=== PATIENT | female | born 2000 | race Caucasian/White ===

== ENCOUNTER 2022-08-06 14:31 | Emergency (ER) | payer OTHER ==
[~2022-08-06] VITALS: Ht 152.4 cm; Wt 74.9 kg
[2022-08-06 14:45] VITALS: BP 151/94
--- NOTE | 2022-08-06 14:45 | NUR ---
pt to bed 7 ambulatory
--- NOTE | 2022-08-06 15:00 | NUR ---
21YO FEMALE PT C/O BREAST RASH AND DISCHARGE [id number]. REPORTS SUDDEN ONSET. SOILED BRA NOTED. BREAST HOT TO TOUCH. DENIES CHANGE IN DAILY ROUTINE, N/V/D, FEVER OR CHILLS. PT AAOX4, NO VISIBLE DISTRESS. HX: ECZEMA NKA
--- NOTE | 2022-08-06 15:33 | NUR ---
Female Textile Bag Sewer accompanied female patient for BREAST Exam.
--- NOTE | 2022-08-06 15:33 | NUR ---
ADRIENNE HARRIS AT BEDSIDE FOR EVALUATION
[2022-08-06] MEDS ORDERED: BUTE30CR4 TP (15:44)
[2022-08-06] MEDS ORDERED: CEPH-588 PO (15:44)
[2022-08-06 15:51] VITALS: BP 130/88
--- NOTE | 2022-08-06 15:51 | NUR ---
Patient discharged with v/s stable. Written and verbal after care instructions FOR CELLULITIS AND SKIN YEAST INFECTION given and explained. Patient alert, oriented and verbalized understanding of instructions. Ambulatory with steady gait. All questions addressed prior to discharge. ID band removed. Patient advised to follow up with PMD. Rx of KELFEX AND BUTENAFINE HCL given. Opportunity to ask questions provided and answered.
--- NOTE | 2022-08-06 15:56 | NUR ---
The patient's care was reviewed and supervised by Meena Cerda RN.
== END 2022-08-06 15:51 | disposition home or self-care (01) ==
LOC: MED 14:31
DX: L29.9 Pruritus, unspecified (principal); Z79.899 Other long term (current) drug therapy
CPT/HCPCS: 99283